=== PATIENT | female | born 1995 | race African-American/Black ===

== ENCOUNTER 2017-02-13 18:02 | Emergency (ER) | payer OTHER ==
[~2017-02-13] VITALS: Ht 175.3 cm; Wt 81.6 kg
[~2017-02-13 18:02] MED LIST: AMOXICILLIN500 MG ORAL; AUGMENTIN 875-1 EAC1 ORAL; NEXAFED30 MG ORAL; PRENATAL FORMU1 EAC2 ORAL; VITAMIN D1000 UNI1 ORAL
[2017-02-13 18:19] VITALS: BP 103/49
[2017-02-13 18:52] LABS: APPEARANCE,URINE CLEAR; KETONES,URINE NEGATIVE (NEGATIVE); LEUKOCYTE ESTERASE ,URINE NEGATIVE (NEGATIVE); NITRITE,URINE NEGATIVE (NEGATIVE); PH,URINE 6 (4.5-8.0); PROTEIN,URINE NEGATIVE (NEGATIVE); UROBILINOGEN,URINE NORMAL MG/DL (0.0-1.0)
[2017-02-13] MEDS ORDERED: FLUCONAZOLE100 MG ORAL (19:46)
[2017-02-13] MEDS ORDERED: METRONIDAZOLE500 MG ORAL (19:46)
--- NOTE | 2017-02-13 19:46 | Emergency Room Report ---
History of Present Illness General Chief Complaint: Abdominal Pain Source: Patient Present Illness HPI 21-year-old female presents emergency department complaining of dysuria and mild increase in clear vaginal discharge x2 days. Patient denies nausea vomiting fevers chills, rash, history of STDs or . Patient states she has unprotected intercourse with her fianc. Patient denies new sexual partners. She denies tender palpable lymph nodes, joint pain or abdominal pain. Patient denies itching. Denies CP, Palpitations, LOC, AMS, dizziness, Changes in Vision, Sensation, paresthesias, or a sudden severe headache. Allergies: Coded Allergies: No Known Allergies (Unverified , 02/01/14) Patient History Past Medical History: see triage record Past Surgical History: none Pertinent Family History: none Last Menstrual Period: last week Now: No Immunizations: UTD Reviewed Nursing Documentation: PMH: Agreed, PSxH: Agreed Nursing Documentation-PMH Past Medical History: No History, Except For Hx Asthma: Yes Review of Systems All Other Systems: negative except mentioned in HPI Physical Exam Vital Signs Date Time Temp Pulse Resp B/P Pulse Ox O2 Delivery O2 Flow Rate FiO2 02/13/17 18:09 98.6 101 18 103/49 98 Room Air Sp02 EP Interpretation: reviewed, normal General Appearance: no apparent distress, alert, GCS 15, non-toxic Head: normocephalic, atraumatic Eyes: bilateral eye PERRL, bilateral eye normal inspection ENT: hearing grossly normal, normal pharynx, no angioedema, normal voice Neck: full range of motion, supple/symm/no masses Respiratory: lungs clear, normal breath sounds, speaking full sentences Cardiovascular #1: regular rate, rhythm, no edema Gastrointestinal: normal bowel sounds, non tender, soft, no guarding, no rebound Rectal: deferred Genitourinary: normal inspection, no CVA tenderness, adnexa normal, cervix normal, ext genitalia/vag normal, os closed, other - milky white vaginal d/c noted, no CMT Musculoskeletal: back normal, gait/station normal, normal range of motion, non- tender Neurologic: alert, oriented x3, responsive, motor strength/tone normal, sensory intact, speech normal Psychiatric: judgement/insight normal, memory normal, mood/affect normal Skin: normal color, no rash, warm/dry, well hydrated Lymphatic: no adenopathy Medical Decision Making PA Attestation Dr. Everett is my supervising Physician whom patient management has been discussed with. Diagnostic Impression: Primary Impression: BV (bacterial vaginosis) ER Course 21-year-old female presents emergency department complaining of dysuria and mild increase in clear vaginal discharge x2 days. Patient denies nausea vomiting fevers chills, rash, history of STDs or . Patient states she has unprotected intercourse with her fianc. Patient denies new sexual partners. She denies tender palpable lymph nodes, joint pain or abdominal pain. Ddx considered but are not limited to UTi , Pyelo, STI, Stone, Cystitis, BV, vaginitis, std Vital signs: are WNL, pt. is afebrile H&PE are most consistent with UTI ORDERS: - UA labs are attached : WNL -Wet Mount Prep: wbc's and clue cells noted. -Urine : Negative -Urine G & C RNA: pending ED INTERVENTIONS: None required at this time. DISCHARGE: At this time pt. is stable for d/c to home. Will provide printed patient care instructions, and any necessary prescriptions. Care plan and follow up instructions have been discussed with the patient prior to discharge. Labs Test 02/13/17 18:20 Urine Color Pale yellow Urine Appearance Clear Urine pH 6 (4.5-8.0) Urine Specific [place] 1.010 (1.005-1.035) Urine Protein Negative (NEGATIVE) Urine Glucose (UA) Negative (NEGATIVE) Urine Ketones Negative (NEGATIVE) Urine Occult Blood Negative (NEGATIVE) Urine Nitrite Negative (NEGATIVE) Urine Bilirubin Negative (NEGATIVE) Urine Urobilinogen Normal MG/DL (0.0-1.0) Urine Leukocyte Esterase Negative (NEGATIVE) Urine HCG, Qualitative Negative Last Vital Signs Date Time Temp Pulse Resp B/P Pulse Ox O2 Delivery O2 Flow Rate FiO2 02/13/17 18:19 98.6 18 103/49 98 Room Air 02/13/17 18:09 101 Disposition: HOME, SELF-CARE Condition: Stable Scripts Fluconazole (FLUCONAZOLE) 100 Mg Tablet 100 MG ORAL DAILY, #2 TAB 0 Refills Prov: Elzbieta Leo P.A. 02/13/17 Metronidazole* (FLAGYL*) 500 Mg Tablet 500 MG ORAL BID for 7 Days, #14 TAB 0 Refills Prov: Elzbieta Leo P.A. 02/13/17 Referrals: NOT CHOSEN IPA/,REFERRING (PCP) Patient Instructions: Bacterial Vaginosis, [id number] Additional Instructions: Take medications as directed. Take Diflucan after finishing all of the antibiotic flagyl. Follow up with PCP in 3-5 days Return sooner to ED if new symptoms occur, or current symptoms become worse. Do not drink alcohol while taking Flagyl as this will cause an unwanted reaction. - Please note that this Emergency Department Report was dictated using [email or web address] home director technology software, occasionally this can lead to erroneous entry secondary to interpretation by the dictation equipment. Elzbieta Leo Feb 13, 2017 19:46
[2017-02-13 19:58] VITALS: BP 111/73
== END 2017-02-13 20:02 | disposition home or self-care (01) ==
LOC: EMR 18:59
DX: N76.0 Acute vaginitis (principal); J45.909 Unspecified asthma, uncomplicated
CPT/HCPCS: 81003; 81025; 87210; 99284

== ENCOUNTER 2018-04-14 17:06 | Emergency (ER) | payer OTHER ==
[~2018-04-14] VITALS: Ht 175.3 cm; Wt 81.6 kg
[~2018-04-14 17:06] MED LIST changes: +FLUCONAZOLE100 MG ORAL; +METRONIDAZOLE500 MG ORAL
[2018-04-14] MEDS ORDERED: Albuterol ud Inhalation HHN ONE (17:30)
[2018-04-14] MEDS ORDERED: Ipratropium 0.02% Inh Soln 2.5ml UD HHN ONE (17:30)
[2018-04-14 17:46] VITALS: BP 105/69
[2018-04-14] MEDS ORDERED: PROMETHAZINE-C118 M1 ORAL (18:21)
[2018-04-14] MEDS ORDERED: PREDNISONE20 MG ORAL (18:21)
[2018-04-14] MEDS ORDERED: ALBUTEROL SULF8.5 GM INH (18:21)
[2018-04-14 18:25] VITALS: BP 105/69
--- NOTE | 2018-04-14 18:33 | Diagnostic Imaging Report ---
EXAM: XR Chest, 1 View CLINICAL HISTORY: COUGH TECHNIQUE: Frontal view of the chest. COMPARISON: No relevant prior studies available. FINDINGS: Lungs: Unremarkable. No consolidation. Pleural space: Unremarkable. No pneumothorax. Heart: Unremarkable. No cardiomegaly. Mediastinum: Unremarkable. Bones/joints: Unremarkable. IMPRESSION: Normal chest x-ray.
--- NOTE | 2018-04-14 18:35 | Emergency Room Report ---
History of Present Illness General Chief Complaint: Dyspnea/Respdistress Source: Patient Present Illness HPI 22-year-old female presents ED complaining of cough and congestion times one week. Notes runny nose. States cough is productive with yellowish phlegm. Notes body aches and chills. Afebrile. States she's been traveling recently multiple cities. History of asthma as a child. Denies smoking or drug use. No other aggravating relieving factors. Denies any other associated symptoms Allergies: Coded Allergies: No Known Allergies (Unverified , 02/01/14) Patient History Past Medical History: asthma Past Surgical History: none Pertinent Family History: none Social History: Denies: smoking, alcohol use, drug use Last Menstrual Period: 03/29/18 Now: No Immunizations: UTD Reviewed Nursing Documentation: PMH: Agreed; PSxH: Agreed Nursing Documentation-PMH Past Medical History: No History, Except For Hx Asthma: Yes Review of Systems All Other Systems: negative except mentioned in HPI Physical Exam Vital Signs Date Time Temp Pulse Resp B/P (MAP) Pulse Ox O2 Delivery O2 Flow Rate FiO2 04/14/18 17:08 99.4 105 18 112/66 99 Room Air 99.3 04/14/18 17:35 21 Sp02 EP Interpretation: reviewed, normal General Appearance: no apparent distress, alert, GCS 15, non-toxic Head: normocephalic, atraumatic Eyes: bilateral eye normal inspection, bilateral eye PERRL ENT: hearing grossly normal, normal pharynx, no angioedema, normal voice Neck: full range of motion, supple/symm/no masses Respiratory: chest non-tender, normal breath sounds, decreased breath sounds, speaking full sentences Cardiovascular #1: regular rate, rhythm, no edema Cardiovascular #2: 2+ carotid (R), 2+ carotid (L), 2+ radial (R), 2+ radial (L) , 2+ dorsalis pedis (R), 2+ dorsalis pedis (L) Gastrointestinal: normal bowel sounds, non tender, soft, non-distended, no guarding, no rebound Rectal: deferred Genitourinary: normal inspection, no CVA tenderness Musculoskeletal: back normal, gait/station normal, normal range of motion, non- tender Neurologic: alert, oriented x3, responsive, motor strength/tone normal, sensory intact, speech normal Psychiatric: judgement/insight normal, memory normal, mood/affect normal, no suicidal/homicidal ideation Reflexes: 3+ bicep (R), 3+ bicep (L), 3+ tricep (R), 3+ tricep (L), 3+ knee (R) , 3+ knee (L) Skin: normal color, no rash, warm/dry, well hydrated Lymphatic: no adenopathy Medical Decision Making Diagnostic Impression: Primary Impression: Bronchitis ER Course Hospital Course 22-year-old female presents to ED complaining of cough, congestion Differential diagnoses include: URI, bronchitis, asthma/COPD, pneumonia Clinical course Patient placed on stretcher. After initial history and physical I ordered prednisone and nebulizer treatment. Chest x-ray shows no evidence of lobar infiltrate Upon reassessment patient states cough and symptoms have improved. Findings consistent with bronchitis. Patient safe for discharge with close outpatient follow-up Diagnosis - bronchitis Stable and discharged home with prescriptions for Rx prednisnoe, promethazine/ codeine, albuterol. Instructed to followup with PMD. Return to ED if symptoms recur or worsen Chest X-Ray Diagnostic Results Chest X-Ray Diagnostic Results : Chest X-Ray Ordered: Yes # of Views/Limited/Complete: 1 View Indication: Shortness of Breath EP Interpretation: Yes Interpretation: no consolidation, no effusion, no pneumothorax, no acute cardiopulmonary disease Impression: No acute disease Electronically Signed by: Electronically signed by Harrison Bey MD Last Vital Signs Date Time Temp Pulse Resp B/P (MAP) Pulse Ox O2 Delivery O2 Flow Rate FiO2 04/14/18 18:01 99 16 99 Room Air 21 04/14/18 17:46 99.3 105/69 99.3 Status: improved Disposition: HOME, SELF-CARE Condition: Stable Scripts Codeine/Promethazine Hcl* (PROMETHAZINE-CODEINE SYRUP*) 118 Ml Syrup 5 ML ORAL Q6H PRN for For Cough, #118 ML 0 Refills Prov: Harrison Bey MD 04/14/18 Prednisone* (PREDNISONE*) 20 Mg Tablet 40 MG ORAL DAILY, #10 TAB Prov: Harrison Bey MD 04/14/18 Albuterol Sulfate* (ALBUTEROL SULFATE MDI*) 8.5 Gm Hfa.aer.ad 2 PUFF INH Q6H, #1 EA 0 Refills Prov: Harrison Bey MD 04/14/18 Patient Instructions: Acute Bronchitis, [id number] Harrison Bey MD Apr 14, 2018 18:35
== END 2018-04-14 18:25 | disposition home or self-care (01) ==
LOC: EMR 17:44
DX: J40 Bronchitis, not specified as acute or chronic (principal); J45.909 Unspecified asthma, uncomplicated
CPT/HCPCS: 71045; 94640; 94664; 99284; J7512

== ENCOUNTER 2018-10-21 13:30 | Emergency (ER) | payer OTHER ==
[~2018-10-21] VITALS: Ht 175.3 cm; Wt 81.6 kg
[~2018-10-21 13:30] MED LIST changes: +ALBUTEROL SULF8.5 GM INH; +PREDNISONE20 MG ORAL; +PROMETHAZINE-C118 M1 ORAL
[2018-10-21] MEDS ORDERED: NKM (13:40)
[2018-10-21 13:45] VITALS: BP 100/60
[2018-10-21] MEDS ORDERED: AUGMENTIN 875-1 EAC1 ORAL (14:11)
[2018-10-21 14:14] VITALS: BP 105/65
--- NOTE | 2018-10-21 14:25 | Emergency Room Report ---
History of Present Illness General Chief Complaint: Allergies Source: Patient Present Illness HPI Patient presents with 2 weeks of increased sinus pressure runny nose Patient reports that she got this sickness from one of her family members Family members have resolved however she continued with runny nose and sinus pressure she reports taking Zyrtec and other allergy type medicine without much relief Denies any posterior pain denies any neck pain denies any photophobia Patient reports that she feels that her multiple sclerosis has somewhat flared given the infection Otherwise denies any difficulty swallowing Denies any difficulty with respiration denies any other weakness Allergies: Coded Allergies: No Known Allergies (Unverified , 02/01/14) Patient History Past Medical History: see triage record Pertinent Family History: none Last Menstrual Period: 09/2018 Now: No Reviewed Nursing Documentation: PMH: Agreed; PSxH: Agreed Nursing Documentation-PMH Past Medical History: No History, Except For Hx Asthma: Yes Review of Systems All Other Systems: negative except mentioned in HPI Physical Exam Vital Signs Date Time Temp Pulse Resp B/P (MAP) Pulse Ox O2 Delivery O2 Flow Rate FiO2 10/21/18 13:36 98.8 114 18 105/68 98 Room Air Sp02 EP Interpretation: reviewed, normal General Appearance: well appearing, no apparent distress Head: normocephalic, atraumatic Eyes: bilateral eye PERRL, bilateral eye EOMI ENT: hearing grossly normal, normal pharynx, TMs + canals normal, uvula midline , other - Mild erythema to bilateral anterior turbinates no obvious bleeding Neck: full range of motion, supple, no meningismus, no bony tend Respiratory: lungs clear, normal breath sounds, no rhonchi, no respiratory distress, no retraction, no accessory muscle use Cardiovascular #1: normal peripheral pulses, regular rate, rhythm, no edema, no gallop, no JVD, no murmur Gastrointestinal: normal bowel sounds, non tender, soft, no mass, no organomegaly, non-distended, no guarding, no hernia, no pulsatile mass, no rebound Genitourinary: no CVA tenderness Musculoskeletal: normal inspection Neurologic: oriented x3, responsive, college coach III-XII nml as tested, motor strength/ tone normal, sensory intact Psychiatric: mood/affect normal Skin: normal color, no rash, warm/dry, palpation normal Lymphatic: normal inspection, no adenopathy Medical Decision Making Diagnostic Impression: Primary Impression: sinusitis ER Course Patient has an otherwise benign medical evaluation Given the duration of symptoms and the patient's complexity given her multiple sclerosis patient is a candidate for antibiotic coverage and sinusitis And will have close outpatient follow-up patient reports that she does not have a primary physician had recent change in insurance and is getting set up with one soon Last Vital Signs Date Time Temp Pulse Resp B/P (MAP) Pulse Ox O2 Delivery O2 Flow Rate FiO2 10/21/18 14:14 98.7 75 22 105/65 97 Room Air Status: unchanged Disposition: HOME, SELF-CARE Condition: Stable Scripts Amoxicillin/Potassium Clav 875-125* (AUGMENTIN 875-125 TABLET*) 1 Each Tablet 1 TAB ORAL TWICE A DAY, #20 TAB Prov: Brandon Jorgensen DO 10/21/18 Patient Instructions: Sinusitis, Adult, [id number] Additional Instructions: Patient is provided with the discharge instructions notified to follow up with primary doctor in the next 2-3 days otherwise return to the er with any worsening symptoms. Please note that this report is being documented using [employer] technology. This can lead to erroneous entry secondary to incorrect interpretation by the dictating instrument. Brandon Jorgensen DO Oct 21, 2018 14:25
== END 2018-10-21 14:16 | disposition home or self-care (01) ==
LOC: EMR 14:00
DX: J32.9 Chronic sinusitis, unspecified (principal); J45.909 Unspecified asthma, uncomplicated
CPT/HCPCS: 99282